=== PATIENT | male | born 1995 | race African-American/Black ===

== ENCOUNTER 2018-09-25 10:54 | Emergency (ER) | payer OTHER ==
[~2018-09-25] VITALS: Ht 177.8 cm; Wt 95.3 kg
[2018-09-25 11:41] LABS: BILIRUBIN NEGATIVE (NEGATIVE); BLOOD NEGATIVE (NEGATIVE); CLARITY CLEAR (CLEAR); COLOR YELLOW (YELLOW); GLUCOSE NEGATIVE (NEGATIVE); KETONE NEGATIVE (NEGATIVE); LEUKO ESTERASE NEGATIVE (NEGATIVE); NITRITE NEGATIVE (NEGATIVE); PH 7.5 (5.0-9.0); UROBILINOGEN 0.2 E.U./dl (0.2-1.0)
[2018-09-25 11:53] LABS: MUCOUS 1+; RBC 0-2 rbc/hpf (0-2)
[2018-09-25] MEDS ORDERED: SEPTDS PO (13:36)
[2018-09-27 08:39] LABS: GONOCOCCUS BY NAA Positive (Negative)
== END 2018-09-25 13:45 | disposition home or self-care (01) ==
LOC: ED 10:54
PROVIDERS: Nurse Practitioner Family
DX: R30.0 Dysuria (principal); R10.9 Unspecified abdominal pain; N48.89 Other specified disorders of penis; Z91.018 Allergy to other foods

== ENCOUNTER 2019-07-10 02:42 | Emergency (ER) | payer OTHER ==
[~2019-07-10] VITALS: Wt 102.5 kg
[~2019-07-10 02:42] MED LIST: SEPTDS PO
== END 2019-07-10 04:49 | disposition home or self-care (01) ==
LOC: ED 02:42
DX: T58.8X1A Toxic effect of carbon monoxide from other source, accidental (unintentional), initial encounter (principal); R51 Headache; Z91.018 Allergy to other foods; Y92.098 Other place in other non-institutional residence as the place of occurrence of the external cause